=== PATIENT | male | born 1960 | race American Indian/Alaskan Native ===

== ENCOUNTER 2017-10-25 09:07 | Emergency (ER) | payer OTHER ==
[2017-10-25 10:04] VITALS: BP 137/90
--- NOTE | 2017-10-25 10:28 | Emergency Department Report ---
HPI - General Chief Complaint: Extremity Problem,Nontraumatic Time Seen by Provider: 10/25/17 10:16 - HPI HPI: This is a 56-year-old male that presents to Hospital reported that he is having a gout flareup in his left toe. Previous episode was 5 years ago. Patient said he usually follows diet but he had a special occasion and had steak and cheese 2 days in a row. Gout pain is 10 out of 10 throbbing in the left great toe. Denies any fever or chills. Denies any injury. Patient has a history of gout but he said he does not a primary care although he has access to primary care. Pain is worse with movement and to touch but at rest. He states that he to Advil this morning but it didn't help. ED Past Medical Hx - Past Medical History Previous Medical History?: Yes Additional medical history: Gout - Surgical History Past Surgical History?: No - Family History Family history: no significant - Social History Smoking Status: Never Smoker Substance Use Type: None - Medications Home Medications: Home Medications Medication Instructions Recorded Confirmed Last Taken Type HYDROcodone/APAP 5-325 [[place] 1 each PO Q6HR PRN #14 tablet 10/23/13 Unknown Rx 5/325 mg] Sulfamethoxazole/Trimethoprim 1 each PO BID #20 tablet 10/23/13 Unknown Rx [Bactrim Ds] Acetaminophen/Codeine [Tylenol 1 tab PO Q6H PRN #12 tab 10/25/17 Unknown Rx /Codeine # 3 tab] Colchicine [Colcrys] 0.6 mg PO TID PRN #12 tab 10/25/17 Unknown Rx Ibuprofen [Motrin 600 MG tab] 600 mg PO Q8H PRN #15 tablet 10/25/17 Unknown Rx methylPREDNISolone [Medrol] 4 mg PO QAM 6 Days #1 tab.ds.pk 10/25/17 Unknown Rx ED Review of Systems ROS: Stated complaint: LEFT FOOT PAIN/GOUT Other details as noted in HPI Comment: All other systems reviewed and negative Constitutional: no symptoms reported Respiratory: no symptoms reported Cardiovascular: denies: chest pain, palpitations, dyspnea on exertion, edema, syncope, paroxysmal nocturnal dyspnea Gastrointestinal: denies: abdominal pain, nausea, vomiting Genitourinary: denies: urgency, dysuria, frequency Musculoskeletal: joint swelling, arthralgia. denies: back pain, myalgia Skin: denies: rash Neurological: denies: weakness, numbness, paresthesias, abnormal gait, vertigo Physical Exam - Physical Exam Vital Signs: Vital Signs 10/25/17 10:00 Temperature 98 F Pulse Rate 97 H Respiratory 16 Rate Blood Pressure 137/90 O2 Sat by Pulse 99 Oximetry General: This is a 56-year-old male well-nourished well-developed in no acute distress. Physical Exam: Head: Normocephalic, atraumatic, no abrasion, no bruising and no contusion. Eyes: Bilateral pupils equal and reactive to light, bilateral EOM intact.. Bilateral conjunctival and sclera without injection, normal accommodation. Mouth: Mucosa dry, no pharyngeal exudate or erythema. No peritonsillar abscesses. Uvula is midline and oral airways patent. Neck: Supple, No Cervical adenopathy, full range of motion and no C-spine tenderness. No swelling or tracheal deviation normal reflexes Cardiovascular: S1, S2. Regular rate and rhythm. No murmur. Capillary refill is less then 3 seconds. Lungs: Clear to auscultate bilaterally. No rhonchi, wheezes or rales. No chest wall tenderness. No chest contusion. No bruising to chest. MSK: Strength 5/5 in all extremities. No joint deformity or crepitus. Normal inspection. Full range of motion to all extremities except for left great toe that is painful with movement.. No laceration, abrasion or ecchymotic area noted. Extremities: No clubbing, cyanosis or edema except for left great toe painful, erythema and tender to palpate.. +2 pulses. No neurovascular compromise Skin: Clean, dry and intact. No rash or lesions. Psych: Normal mood and behavior ED Course Vital Signs 10/25/17 10:00 Temperature 98 F Pulse Rate 97 H Respiratory 16 Rate Blood Pressure 137/90 O2 Sat by Pulse 99 Oximetry - Reevaluation(s) Reevaluation #1: 10/25/17 10:44 Patient given Toradol 30 mg IM, Decadron 10 mg IM and cold Eliceo 1.2 mg by mouth for gout attack. ED Medical Decision Making - Medical Decision Making ED course: She presented emergency room complaining of got attacked his left great toe. Physical findings for erythema, tender to palpate and swelling to left great toe. He ate steak and cheese over the last 2 days and report that he 's been very good with his diet but his family member has been graduated and he ate around fluid. He said it's been 5 years since he's had an attack because he 's been following diet. Patient stable he received cold Eliceo 1.2 mg by mouth, Decadron 10 mg IM and Toradol 30 mg IM with relief of pain. Patient discharged home in stable condition with prescription for Colcrys, Motrin, Tylenol 3 and Medrol Dosepak. Patient does not have a primary care and needs one so I will refer him to Dr. Toña Sanches. He does have access to primary care. Critical care attestation.: If time is entered above; I have spent that time in minutes in the direct care of this critically ill patient, excluding procedure time. ED Disposition Clinical Impression: Arthralgia of toe of left foot Gout attack Qualifiers: Gout site: toe Gout etiology: other secondary cause Laterality: left Qualified Code(s): M10.472 - Other secondary gout, left ankle and foot Disposition: - TO HOME OR SELFCARE Is pt being admited?: No Does the pt Need Aspirin: No Condition: Stable Instructions: Arthralgia (ED), Acute Gouty Arthritis (ED) Additional Instructions: Please avoid eating foods that is high in Purine.. Please refer to discharge instruction for Low purine diet Increase her fluid intake Please do not drive or operate machinery while taking Tylenol No. 3 as medication causes drowsiness. Take other medication for gout flareup. Discharge instruction paperwork for Dr. Mark Snaches, He is a internal medicine doctor, U will need to schedule an appointment for primary care visit and for management of chronic gout. Prescriptions: Acetaminophen/Codeine [Tylenol /Codeine # 3 tab] 1 tab PO Q6H PRN #12 tab PRN Reason: moderate to severe pain Colchicine [Colcrys] 0.6 mg PO TID PRN #12 tab PRN Reason: gout pain Ibuprofen [Motrin 600 MG tab] 600 mg PO Q8H PRN #15 tablet PRN Reason: Pain methylPREDNISolone [Medrol] 4 mg PO QAM 6 Days #1 tab.ds.pk Referrals: CALLI SANCHES JR, MD [Staff Physician] - 2-3 Days Forms: Work/School Release Form(ED)
[2017-10-25] MEDS ORDERED: TORADOL IM ONE (10:42)
[2017-10-25] MEDS ORDERED: COLCRYS PO ONE (10:42)
[2017-10-25] MEDS ORDERED: DECADRON IM STA (10:43)
== END 2017-10-25 11:10 | disposition home or self-care (01) ==
LOC: ED 09:07
DX: M79.672 Pain in left foot (principal); M10.9 Gout, unspecified
CPT/HCPCS: 96372; 99282; J1100; J1885

== ENCOUNTER 2017-11-06 05:47 | Emergency (ER) | payer OTHER ==
[2017-11-06 05:56] VITALS: BP 143/86
[2017-11-06] MEDS ORDERED: DECADRON IM ONE (07:24)
[2017-11-06] MEDS ORDERED: TORADOL IM ONE (07:24)
--- NOTE | 2017-11-06 07:40 | Emergency Department Report ---
HPI - General Chief Complaint: Extremity Problem,Nontraumatic Time Seen by Provider: 11/06/17 07:15 - HPI HPI: This is a 56-year-old male who is [place] in the past less than a month ago for similar problems of got here. He is experiencing got cleared to left great toe that started yesterday. Reports pain is 10 out of 10. He said he took some Aleve at home but it didn't help. Pain is worse with movement and with touch better with rest. Denies any numbness or tingling to extremities. Reports pain as sharp and throbbing. Denies any fever or chills. Denies any injury. Patient with history of gout but does not report any other medical problems. This patient secondary to stand this year. He said he just got insurance and he is looking for a primary care physician. Patient was given information on low purine diet which he said he read . He Said he hasn't been eating anything that would cause gout flare. [place] shortness of breath or chest pain. ED Past Medical Hx - Past Medical History Previous Medical History?: Yes Additional medical history: Gout - Surgical History Past Surgical History?: No - Family History Family history: hypertension - Social History Smoking Status: Former Smoker Substance Use Type: Alcohol - Medications Home Medications: Home Medications Medication Instructions Recorded Confirmed Last Taken Type HYDROcodone/APAP 5-325 [[place] 1 each PO Q6HR PRN #14 tablet 10/23/13 Unknown Rx 5/325 mg] Sulfamethoxazole/Trimethoprim 1 each PO BID #20 tablet 10/23/13 Unknown Rx [Bactrim Ds] Acetaminophen/Codeine [Tylenol 1 tab PO Q6H PRN #12 tab 10/25/17 Unknown Rx /Codeine # 3 tab] Colchicine [Colcrys] 0.6 mg PO TID PRN #12 tab 11/06/17 Unknown Rx Ibuprofen [Motrin 600 MG tab] 600 mg PO Q8H PRN #15 tablet 11/06/17 Unknown Rx methylPREDNISolone [Medrol] 4 mg PO QAM 6 Days #1 tab.ds.pk 11/06/17 Unknown Rx ED Review of Systems ROS: Stated complaint: GOUT Other details as noted in HPI Comment: All other systems reviewed and negative Constitutional: no symptoms reported Respiratory: no symptoms reported Cardiovascular: denies: chest pain, palpitations, dyspnea on exertion, edema, syncope, paroxysmal nocturnal dyspnea Gastrointestinal: denies: abdominal pain, nausea, vomiting Genitourinary: denies: hematuria Musculoskeletal: joint swelling, arthralgia. denies: back pain, myalgia Skin: denies: rash Neurological: denies: headache Physical Exam - Physical Exam Vital Signs: Vital Signs 11/06/17 05:50 Temperature 98.2 F Pulse Rate 91 H Respiratory 18 Rate Blood Pressure 143/86 O2 Sat by Pulse 99 Oximetry General: This is a 56-year-old male well-nourished well-developed in no acute distress Physical Exam: Head: Normocephalic, atraumatic, no abrasion, no bruising and no contusion. Eyes: Biateral pupils equal and reactive to light, bilateral EOM intact.. Bilateral conjunctival and sclera without injection, normal accommodation. Neck: Supple, No Cervical adenopathy, full range of motion and no C-spine tenderness. No swelling or tracheal deviation normal reflexes Cardiovascular: S1, S2. Regular rate and rhythm. No murmur. Capillary refill is less then 3 seconds. Lungs: Clear to auscultate bilaterally. No rhonchi, wheezes or rales. No chest wall tenderness. No chest contusion. No bruising to chest. MSK: Strength 5/5 in all extremities. No joint deformity or crepitus. Normal inspection. Full range of motion to all extremities. No laceration, abrasion or ecchymotic area noted. Abdomen: Non-tender to palpate in all quadrants, no guarding or rebound tenderness, positive bowel sounds in all quadrants. No CVA tenderness. No hernia, bruit or mass. No rigidity or distention. Extremities: No clubbing, cyanosis or edema. +2 pulses. No neurovascular compromise. Patient with swelling to left great toe. Tenderness to palpate with mild erythema and pain with movement. No sign of infection noted. Skin: Left great toe with swelling, tenderness to palpate, pain with movement, mild erythema and temperature difference noted and left great toe when compared to the right great toe. Patient with increased warmth to the left great toe. Psych: Normal mood and behavior ED Course Vital Signs 11/06/17 05:50 Temperature 98.2 F Pulse Rate 91 H Respiratory 18 Rate Blood Pressure 143/86 O2 Sat by Pulse 99 Oximetry - Reevaluation(s) Reevaluation #1: 11/06/17 07:46 Patient given Colcrys 1.2 mg, Decadron 10 mg IM and Toradol 30 mg IM in emergency room for gout flare up. ED Medical Decision Making - Medical Decision Making ED course: Patient here forgot flareup that started yesterday. He was given Colcrys 1.2 mg, Decadron 10 mg IM and Toradol 30 mg IM which helped his gout. Patient discharged home in stable condition to follow-up with primary care physician that I recommended him to. If that is feeling better and discharged home a prescription for Colcrys, Medrol Dosepak and Motrin. Critical care attestation.: If time is entered above; I have spent that time in minutes in the direct care of this critically ill patient, excluding procedure time. ED Disposition Clinical Impression: Arthralgia of toe of left foot Acute gout involving toe of left foot Qualifiers: Gout etiology: unspecified cause Qualified Code(s): M10.9 - Gout, unspecified Disposition: TO HOME OR SELFCARE Is pt being admited?: No Does the pt Need Aspirin: No Condition: Stable Instructions: Arthralgia (ED), Acute Gouty Arthritis (ED) Additional Instructions: Please follow diet that is low in purine to prevent gout flareup Take medication as prescribed Follow-up primary care physician as instructed Prescriptions: Colchicine [Colcrys] 0.6 mg PO TID PRN #12 tab PRN Reason: gout pain Ibuprofen [Motrin 600 MG tab] 600 mg PO Q8H PRN #15 tablet PRN Reason: Pain methylPREDNISolone [Medrol] 4 mg PO QAM 6 Days #1 tab.ds.pk Referrals: CALLI SIEGEL JR, MD [Staff Physician] - 2-3 Days DACIA CARLOS MD [Staff Physician] - 2-3 Days [facility] [Outside] - 2-3 Days
[2017-11-06] MEDS ORDERED: COLCRYS PO ONE (07:45)
== END 2017-11-06 08:00 | disposition home or self-care (01) ==
LOC: ED 05:47
DX: M10.9 Gout, unspecified (principal); M79.675 Pain in left toe(s)
CPT/HCPCS: 96372; 99282; J1100; J1885